=== PATIENT | male | born 2000 | race Two or more races ===

== ENCOUNTER 2023-11-01 11:51 | Emergency (ER) | payer OTHER ==
[~2023-11-01] VITALS: Ht 167.6 cm; Wt 68.5 kg
[2023-11-01 13:40] VITALS: O2SAT 99
== END 2023-11-01 13:35 | disposition home or self-care (01) ==
LOC: FSED 11:58
DX: N50.812 Left testicular pain (principal); N45.1 Epididymitis
CPT/HCPCS: 81003; 99283